=== PATIENT | male | born 1950 | race Caucasian/White ===

== ENCOUNTER 2018-05-09 15:21 | Emergency (ER) | payer MEDICARE, OTHER ==
[~2018-05-09] VITALS: Ht 177.8 cm; Wt 95.5 kg
[2018-05-09] MEDS ORDERED: COUMADIN 4MG4 MG/TAB PO (15:28)
[2018-05-09] MEDS ORDERED: ASPIR LOW81 MG PO (15:28)
[2018-05-09 16:19] LABS: HEMOGLOBIN 14.8 g/dL (13.5-18.0); MEAN CELL VOLUME 93 fl (78-100); MEAN CORPUSCULAR HEMOGLOBIN 31 pg (27-31); MEAN CORPUSCULAR HGB CONC 33 g/dL (33-37); MEAN PLATELET VOLUME 11.1 fl (7.4-10.4); PLATELET COUNT 135 K/mm3 (130-400); RED BLOOD COUNT 4.83 M/mm3 (4.20-5.60); RED CELL DISTRIBUTION WIDTH 13.3 % (11.5-14.5); WHITE BLOOD COUNT 10.2 K/mm3 (4.8-10.8)
[2018-05-09 16:28] LABS: PROTHROMBIN TIME 26.6 SECONDS (9.0-12.0)
[2018-05-09 16:30] LABS: CALCIUM 9.3 mg/dL (8.4-10.2); POTASSIUM 3.6 mmol/L (3.6-5.0)
[2018-05-09 16:36] LABS: D-DIMER 0.81 mg/L FEU (0.15-0.50)
[2018-05-09 16:55] LABS: NEUTROPHILS 71 % (42-75)
[2018-05-09 16:56] LABS: LYMPHOCYTE 15 % (20-51); MONOCYTE 10 % (3-10)
[2018-05-09] MEDS ORDERED: BACTRIM DS TAB1 EACH PO (17:40)
[2018-05-09 17:44] LABS: ERYTHROCYTE SEDIMENTATION RATE 38 mm/hr (0-20)
[2018-05-09 17:50] VITALS: BP 147/93
== END 2018-05-09 17:47 | disposition home or self-care (01) ==
LOC: ED 15:21
PROVIDERS: Nurse Practitioner Family
DX: L03.115 Cellulitis of right lower limb (principal); D68.2 Hereditary deficiency of other clotting factors; I83.10 Varicose veins of unspecified lower extremity with inflammation; I82.409 Acute embolism and thrombosis of unspecified deep veins of unspecified lower extremity; Z79.82 Long term (current) use of aspirin; Z79.01 Long term (current) use of anticoagulants; F17.210 Nicotine dependence, cigarettes, uncomplicated; Z95.828 Presence of other vascular implants and grafts